=== PATIENT | male | born 1950 | race Caucasian/White ===

== ENCOUNTER 2022-08-24 17:21 | Emergency (ER) | payer MEDICARE ==
[~2022-08-24] VITALS: Ht 172.7 cm; Wt 90.3 kg
--- NOTE | 2022-08-24 18:00 | NUR ---
[id number] home c/o lower abdominal pain worst to rlq since last night
[2022-08-24] MEDS ORDERED: ONDANSETRON HCL/PF 4 MG/2 ML VIAL ONE (18:13)
[2022-08-24] MEDS ORDERED: MORPHINE SULFATE INJ 4 MG/ML DISP.SYRIN ONE (18:13)
[2022-08-24] MEDS ORDERED: KETOROLAC TROMETHAMINE INJ 30 MG/ML VIAL ONE (18:13)
[2022-08-24 18:30] LABS: BASOPHILS % (AUTO) 0.3 % (0.0-2.0); EOSINOPHILS % (AUTO) 0.2 % (0.0-6.0); HEMATOCRIT 45 % (39-51); HEMOGLOBIN 14.7 g/dL (13.5-17.5); LYMPHOCYTES % (AUTO) 11.7 % (20.0-44.0); MEAN CORPUSCULAR HGB CONC 33 g/dl (31.0-36.0); MEAN CORPUSCULAR VOLUME 92 fL (80-96); MONOCYTES # (AUTO) 0.5 K/uL (0.1-1.30); MONOCYTES % (AUTO) 5.8 % (2.0-12.0); NEUTROPHILS # (AUTO) 7.2 K/uL (1.8-8.9); PLATELET COUNT (AUTO) 208 K/uL (150-450); RED BLOOD CELL COUNT(AUTO) 4.85 MIL/uL (4.5-6.0); WHITE BLOOD COUNT (AUTO) 8.8 K/uL (4.3-11.0)
[2022-08-24] MEDS ORDERED: MORPHINE SULFATE INJ 2 MG/ML DISP.SYRIN IV ONE (18:30)
[2022-08-24] MEDS ORDERED: KETOROLAC TROMETHAMINE INJ 30 MG/ML VIAL IV ONE (18:30)
[2022-08-24] MEDS ORDERED: ONDANSETRON HCL/PF 4 MG/2 ML VIAL IVP ONE (18:30)
[2022-08-24 18:52] LABS: CALCIUM, SERUM 9.6 mg/dL (8.5-10.1); CREATININE 1.1 mg/dL (0.6-1.3)
[2022-08-24 18:59] LABS: ALBUMIN 4.1 g/dL (3.4-5.0); BILIRUBIN,DIRECT 0.1 mg/dL (0.0-0.2); BILIRUBIN,TOTAL 0.7 mg/dL (0.2-1.0); TOTAL PROTEIN, SERUM 7.4 g/dL (6.4-8.2)
[2022-08-24] MEDS ORDERED: IV NS 0.9% 1,000 ML BAG IV ONE (19:30)
--- NOTE | 2022-08-24 19:35 | NUR ---
RECEIVED REPORT FROM ANDREAS MANLEY. PATIENT IS AAOX4. FARSI SPEAKING. CAME EARLIER WITH CC OF ABDOMINAL PAIN MOSTLY ON RIGHT SIDE. PATIENT HAS IV SANDIP ON RIGHT AC G20. PATIENT IS AAOX4. ABLE TO MAKE NEEDS KNOWN. VITALS CHECKED
[2022-08-24] MEDS ORDERED: TAMSULOSIN 0.4 MG CAP.SR.24H PO ONE (20:00)
--- NOTE | 2022-08-24 20:00 | NUR ---
URINE SPECIMEN SENT TO LAB
[2022-08-24] MEDS ORDERED: TAMSULOSIN 0.4 MG CAP.SR.24H ONE (20:12)
[2022-08-24] MEDS ORDERED: TAMS-12 PO (20:19)
[2022-08-24 20:33] LABS: BILIRUBIN,URINE NEGATIVE (NEGATIVE); COLOR,URINE YELLOW (YELLOW); LEUKOCYTE ESTERASE ,URINE NEGATIVE (NEGATIVE); NITRITE, URINE NEGATIVE (NEGATIVE); PROTEIN,URINE TRACE mg/dl (NEGATIVE); UGLUCOSE NEGATIVE (NEGATIVE); UROBILINOGEN,URINE 0.2 EU/dL (0.2)
[2022-08-24] MEDS ORDERED: IBUPROFEN 600 MG TABLET ONE (20:37)
[2022-08-24 20:43] LABS: RBC,URINE 81-100 /HPF (0-2); WBC,URINE 0-2 /HPF (0-3)
[2022-08-24 20:44] LABS: BACTERIA,URINE RARE /HPF (None Seen); CALCIUM OXALATE CRYSTALS,UR Many /HPF (None Seen)
[2022-08-24] MEDS ORDERED: IBUPROFEN 600 MG TABLET PO ONE (21:00)
[2022-08-24 21:05] VITALS: BP 152/93
--- NOTE | 2022-08-24 21:05 | NUR ---
Patient discharged to home in stable condition. Written and verbal after care instructions given. Patient verbalizes understanding of instruction.
== END 2022-08-24 21:06 | disposition home or self-care (01) ==
LOC: ER 17:29
DX: N20.0 Calculus of kidney (principal); N20.1 Calculus of ureter; E11.9 Type 2 diabetes mellitus without complications
CPT/HCPCS: 99285; 74176; 96374; 71045; 96375; 93005; 85025; 80048; 83690; 80076; 81001; 36415; 85730; J2270; J1885; J2405